=== PATIENT | female | born 1995 | race American Indian/Alaskan Native ===

== ENCOUNTER 2017-03-14 22:45 | Emergency (ER) | payer SELFPAY ==
[2017-03-14 23:29] VITALS: BP 110/60
[2017-03-14 23:57] LABS: Basophils % (Auto) 0.6 % (0.0-1.8); Eosinophils % (Auto) 0.2 % (0.0-4.3); Lymphocytes % (Auto) 12.6 % (13.4-35.0); Mean Corpuscular HGB Conc 33 % (30-34); Mean Corpuscular Hemoglobin 29 pg (28-32); Mean Corpuscular Volume 88 fl (79-97); Monocytes % (Auto) 3.5 % (0.0-7.3); Platelet Count 358 K/mm3 (140-440); Red Blood Count 4.43 M/mm3 (3.65-5.03); Red Cell Distribution Width 13.5 % (13.2-15.2)
[2017-03-15 00:10] LABS: Lymphocytes # (Auto) 1.7 K/mm3 (1.2-5.4); Monocytes # (Auto) 0.4 K/mm3 (0.0-0.8)
[2017-03-15 00:18] LABS: BUN/Creatinine Ratio 12; Blood Urea Nitrogen 6 mg/dL (7-17); Calcium 9.5 mg/dL (8.4-10.2); Hemolysis Index 2
[2017-03-15 00:20] LABS: Bilirubin,Urine NEG (Negative); Blood,Urine NEG (Negative); Color,Urine Yellow (Yellow); Mucus,Urine FEW /HPF; Nitrite,Urine NEG (Negative); Protein,Urine <15 mg/dL mg/dL (Negative); Urobilinogen,Urine < 2.0 mg/dL (<2.0)
--- NOTE | 2017-03-15 02:02 | Ultrasound Report ---
FINAL REPORT EXAM: US OB > = 14 WEEKS FETUS HISTORY: vaginal bleeding TECHNIQUE: Transabdominal imaging was obtained of the pelvis. There are no previous studies available for comparison. FINDINGS: There is an intrauterine in breech presentation with an ultrasound gestational age of 17 weeks 3 days based on measurements. The estimated weight is 196 grams +/-29 grams. There are no abnormalities involving the stomach, bladder, choroid plexus, cisterna magna, cerebellum, or lateral ventricles. The entire spine, four-chamber reveal heart, umbilical cord, cord insertion and kidneys are not adequately seen for evaluation. The placenta is anterior and is grade 0. The heart is 156 BPM. The amniotic fluid volume is normal. The cervical length is 2.9 cm. Free fluid is not seen. IMPRESSION: Single viable intrauterine with an estimated gestational age of 17 weeks 3 days. Breech presentation. heart is 156 BPM.
== END 2017-03-15 02:50 | disposition left against medical advice (07) ==
LOC: ED 22:45
DX: R10.9 Unspecified abdominal pain (principal); Z53.21 Procedure and treatment not carried out due to patient leaving prior to being seen by health care provider
CPT/HCPCS: 36415; 76805; 80048; 81001; 84702; 85025